=== PATIENT | female | born 1970 | race Caucasian/White ===

== ENCOUNTER → 2024-06-16 | Day surgery (SDC) | payer OTHER ==
[~2024-06-16] VITALS: Ht 160 cm; Wt 129.5 kg
[~2024-06-16] MED LIST: CETI-450 PO; DOCU-412 PO; EPOE10008 INJ; ERGO500093 PO; FLUT16SP NASAL; GABA-1181 PO; INSU100V SQ; INSU3INS3 INJ; LIDOCAINE/PF 2% 5 ML VIAL IM ONE; MELA5TAB40 PO; NALO0.4V7 IM; OXYGEN THERAPY IH SCH; PROPOFOL 1% 20 ML VIAL IVP ONE; SERT-158 PO; SODIUM CHLORIDE 0.9% 1,000 ML ONE
[2024-06-16 09:06] LABS: GLUCOMETER DEV NAME(LOC) SDS.; GLUCOSE,POINT OF CARE 175 MG/DL (70-110)
[2024-06-16] MEDS: SODIUM CHLORIDE 0.9% 1,000 ML IV ONE (09:23)
== END | disposition still patient (30) ==
LOC: SURGERY 07:47
PROVIDERS: ATTEND Specialist
DX: D50.9 Iron deficiency anemia, unspecified (principal); K29.70 Gastritis, unspecified, without bleeding; E11.9 Type 2 diabetes mellitus without complications; D64.9 Anemia, unspecified; Z98.41 Cataract extraction status, right eye; Z98.42 Cataract extraction status, left eye; Z98.890 Other specified postprocedural states; Z90.721 Acquired absence of ovaries, unilateral; Z91.011 Allergy to milk products; Z79.4 Long term (current) use of insulin; Z86.0100 Personal history of colon polyps, unspecified; E66.9 Obesity, unspecified; Z68.43 Body mass index [BMI] 50.0-59.9, adult; Z85.42 Personal history of malignant neoplasm of other parts of uterus
CPT/HCPCS: 43239; 88305; 82962; J2704; J3490; J7030

== ENCOUNTER 2024-10-08 08:22 | Day surgery (SDC) | payer OTHER ==
[~2024-10-08] VITALS: Ht 160 cm; Wt 144.5 kg
[~2024-10-08 08:22] MED LIST changes: -EPOE10008 INJ; +EPOE10008 SQ; -INSU3INS3 INJ; +INSU3INS3 SQ; -LIDOCAINE/PF 2% 5 ML VIAL IM ONE; -OXYGEN THERAPY IH SCH; -PROPOFOL 1% 20 ML VIAL IVP ONE
[2024-10-08 09:34] LABS: HEMATOCRIT 29.5 % (36-46); HEMOGLOBIN 9.1 g/dL (12.0-16.0)
[2024-10-08] MEDS: SODIUM CHLORIDE 0.9% 1,000 ML IV ONE (09:37)
[2024-10-08 09:46] LABS: GLUCOMETER DEV NAME(LOC) SDS.; GLUCOSE,POINT OF CARE 105 MG/DL (70-110)
[2024-10-08] MEDS ORDERED: LIDOCAINE/PF 2% 5 ML VIAL ONE (12:00)
[2024-10-08] MEDS ORDERED: PROPOFOL 1% 20 ML VIAL IVP ONE (12:00)
[2024-10-08] MEDS ORDERED: OXYGEN THERAPY IH SCH (20:00)
== END 2024-10-08 12:00 | disposition home or self-care (01) ==
LOC: SURGERY 08:22
PROVIDERS: ATTEND Specialist
DX: K92.1 Melena (principal); E78.00 Pure hypercholesterolemia, unspecified; F41.9 Anxiety disorder, unspecified; F32.A Depression, unspecified; Z79.899 Other long term (current) drug therapy; E11.9 Type 2 diabetes mellitus without complications; E66.01 Morbid (severe) obesity due to excess calories; Z98.890 Other specified postprocedural states; Z87.442 Personal history of urinary calculi; Z90.710 Acquired absence of both cervix and uterus; Z91.011 Allergy to milk products; Z85.42 Personal history of malignant neoplasm of other parts of uterus; I10 Essential (primary) hypertension; Z68.43 Body mass index [BMI] 50.0-59.9, adult
CPT/HCPCS: 45330; 36415; 82962; 85014; 85018; J2704; J3490; J7030